=== PATIENT | female | born 1990 | race Caucasian/White ===

== ENCOUNTER 2018-08-06 13:08 | Outpatient (CLI) | END 2018-08-06 14:47 | disposition home or self-care (01) ==

== ENCOUNTER 2018-08-28 10:49 | Outpatient (CLI) | END 2018-08-28 13:35 | disposition home or self-care (01) ==

== ENCOUNTER 2018-08-29 08:37 | Inpatient (IN) | END 2018-09-01 17:41 | disposition home or self-care (01) | DRG 806 ==